=== PATIENT | female | born 2000 ===

== ENCOUNTER 2020-11-06 04:15 | Inpatient (IN) | payer MEDICAID ==
[~2020-11-06] VITALS: Ht 154.9 cm; Wt 68.4 kg
--- NOTE | 2020-11-06 04:29 | NUR ---
Patient BIBA from [place] for a poss choledocholithiasis and a UTI. Patient presented to their facility c/o acute RUQ abd pain with nausea and vomiting. [employer]ACHINE [employer] previous facility admin Rocephine, Morphine, and Zofran. Patient is in NAD. Respirations even and unlabored.
--- NOTE | 2020-11-06 05:06 | NUR ---
Report given to BATSHEVA Lara. Patient to be transferred to room 443.
[2020-11-06] MEDS ORDERED: DOCUSATE 100 MG CAPSULE PO PRN (05:30)
[2020-11-06] MEDS ORDERED: ONDANSETRON ODT 4 MG PO PRN (05:30)
[2020-11-06] MEDS ORDERED: SODIUM CHLORIDE 0.9% 1,000 ML IV SCH (05:30)
[2020-11-06] MEDS ORDERED: PROMETHAZINE 25 MG/ML, 1ML IM PRN (05:30)
[2020-11-06] MEDS ORDERED: ONDANSETRON 2MG/ML, 2ML IVPush PRN (05:30)
[2020-11-06] MEDS ORDERED: OXYcodone IR 5MG TABLET PO PRN (05:30)
[2020-11-06] MEDS ORDERED: hydrALAzine 20 MG/ML, 1ML IVPush PRN (05:30)
[2020-11-06 05:33] LABS: BASOPHILS % (AUTO) 0 % (0-1); EOSINOPHILS % (AUTO) 2 % (1-7); LYMPHOCYTES % (AUTO) 21 % (22-44); MEAN CORPUSCULAR HEMOGLOBIN 27.7 pg (27.0-34.8); MEAN CORPUSCULAR HGB CONC 33.5 g/dL (32.4-35.8); MEAN PLATELET VOLUME 8.8 fL (7.4-10.4); MONOCYTES % (AUTO) 8 % (2-9); NEUTROPHILS % (AUTO) 69 % (42-75); PLATELET COUNT 222 x10^3/uL (130-400); RED BLOOD COUNT 4.55 x10^6/uL (3.82-5.3); RED CELL DISTRIBUTION WIDTH 15.2 % (9.6-15.2)
[2020-11-06 05:35] LABS: MD NO
[2020-11-06 05:36] LABS: ALANINE AMINOTRANSFERASE 437 U/L (12-78); ALBUMIN 3.2 g/dL (3.4-5.0); ANION GAP 4 mmol/L (5-15); CALCIUM 7.8 mg/dL (8.5-10.1); CHLORIDE 104 mmol/L (98-107); CHOLESTEROL, TOTAL 101 mg/dL (140-239); CREATININE 0.95 mg/dL (0.55-1.02)
[2020-11-06 05:40] VITALS: BP 94/62
[2020-11-06 05:44] LABS: ALKALINE PHOSPHATASE 266 U/L (45-117); BILIRUBIN,TOTAL 0.9 mg/dL (0.2-1.0); CHOL/HDL RATIO 1.5; FREE T4 (FREE THYROXINE) 0.82 ng/dL (0.76-1.46); HDL CHOL % 66 % (28-40); HDL CHOLESTEROL (DIRECT) 67 mg/dL (40-60); LDL CHOLESTEROL,CALCULATED 23 mg/dL (54-169); LDL/HDL RATIO 0.3 (0.5-3.0); TOTAL PROTEIN 6.5 g/dL (6.4-8.2); TRIGLYCERIDES 56 mg/dL (50-200); VLDL CHOLESTEROL 11 mg/dL (0-25)
[2020-11-06] MEDS ORDERED: CEFTRIAXONE PMX 1GM/50ML 50 ML IV SCH (06:00)
[2020-11-06 07:25] VITALS: BP 101/67
[2020-11-06 07:51] LABS: MICROSCOPIC INDICATED
[2020-11-06] MEDS: METOCLOPRAMIDE 5 MG/ML, 2ML IVPush SCH ×2 (12:30→18:31)
[2020-11-06 13:25] VITALS: BP 94/62
[2020-11-06 19:17] VITALS: BP 96/61
[2020-11-07] MEDS: METOCLOPRAMIDE 5 MG/ML, 2ML IVPush SCH ×3 (00:39→12:56)
[2020-11-07 02:25] VITALS: BP 100/50
[2020-11-07 05:19] LABS: ALBUMIN 2.8 g/dL (3.4-5.0); ANION GAP 7 mmol/L (5-15); CALCIUM 8.1 mg/dL (8.5-10.1); CHLORIDE 109 mmol/L (98-107)
[2020-11-07 05:23] LABS: ALANINE AMINOTRANSFERASE 288 U/L (12-78); ALKALINE PHOSPHATASE 240 U/L (45-117); BILIRUBIN,TOTAL 0.5 mg/dL (0.2-1.0); CREATINE KINASE, TOTAL 38 U/L (26-192); CREATININE 0.66 mg/dL (0.55-1.02)
[2020-11-07 06:42] VITALS: BP 96/52
[2020-11-07 12:07] VITALS: BP 91/61
[2020-11-07 16:42] LABS: ANA SCREEN NEGATIVE (Negative)
== END 2020-11-07 15:00 | disposition home or self-care (01) ==
LOC: ED 05:23 → EDIP 05:24 → 4NW 05:26 → DCLOUNGE 11-07 14:55
PROVIDERS: ADMIT Internal Medicine; ATTEND Hospitalist
DX: B17.9 Acute viral hepatitis, unspecified (principal); F03.90 Unspecified dementia, unspecified severity, without behavioral disturbance, psychotic disturbance, mood disturbance, and anxiety; F17.210 Nicotine dependence, cigarettes, uncomplicated; K31.89 Other diseases of stomach and duodenum; N39.0 Urinary tract infection, site not specified; Q44.2 Atresia of bile ducts; F19.10 Other psychoactive substance abuse, uncomplicated; Z88.6 Allergy status to analgesic agent
CPT/HCPCS: 36415; 74181; 76700; 80053; 80061; 80074; 80299; 81001; 82550; 83036; 83516; 83735; 84100; 84439; 84443; 85025; 86038; 87086; 93005; G0378; J0696; J2765; J7030